=== PATIENT | female | born 1995 | race Caucasian/White ===

== ENCOUNTER 2017-03-20 14:46 | Emergency (ER) | payer OTHER ==
[~2017-03-20] VITALS: Ht 157.5 cm; Wt 54.5 kg
[2017-03-20 14:47] VITALS: BP 149/102; PULSE 111; RESP 20; TEMP 99.1; O2SAT 98
--- NOTE | 2017-03-20 14:57 | PD ---
Physical Exam Date Seen by Provider: Mar 20, 2017 Time Seen by Provider: 14:56 Narrative 22 yo female here for abdominal pain. LUQ. Going on since today. Cramping pain. No injuries. Getting worst. Going to the back and epigastric area. Some SOB with pain. Chest tightness. No N/V/D. Vitals stable in triage. Awaiting bed placement. Data Data Last Documented VS Vital Signs Date Time Temp Pulse Resp B/P (MAP) Pulse Ox O2 Delivery O2 Flow Rate FiO2 03/20/17 14:47 99.1 111 20 149/102 (118) 98 Room Air [facility] Medical Record Reviewed: Yes Supervised Visit with ARVIN: No Garry Cleary Mar 20, 2017 14:57
[2017-03-20 15:18] LABS: AUTOMATED NEUTROPHIL # 6.2 TH/MM3 (1.8-7.7); BASOPHIL % 0.3 % (0.0-2.0); EOSINOPHIL % 0.1 % (0.0-4.0); HEMATOCRIT 42.5 % (35.0-46.0); HEMO FLAGS DIFF FINAL; LYMPH % 15.4 % (9.0-44.0); LYMPHOCYTE # 1.2 TH/MM3 (1.0-4.8); MEAN CELL VOLUME 93.2 FL (80.0-100.0); MEAN CORPUSCULAR HEMOGLOBIN 31.6 PG (27.0-34.0); MEAN CORPUSCULAR HGB CONC 33.9 % (32.0-36.0); NEUT % 77.2 % (16.0-70.0); PLATELET COUNT 242 TH/MM3 (150-450); RED BLOOD COUNT 4.57 MIL/MM3 (4.00-5.30); RED CELL DISTRIBUTION WIDTH 12.7 % (11.6-17.2); WHITE BLOOD COUNT 8.1 TH/MM3 (4.0-11.0)
[2017-03-20 15:27] LABS: BLOOD, URINE NEG (NEG); COMMENT (UR) CULT NOT INDICATED; CULTURE IF INDICATED CULT NOT INDICATED; GLUCOSE,URINE NEG (NEG); KETONE, URINE TRACE mg/dL (NEG); NITRITE,URINE NEG (NEG); PH, URINE 7.5 (5.0-8.5); SQUAMOUS EPITHELIAL CELL URINE 9 /hpf (0-5); URINE COLOR YELLOW (YELLW/STRAW)
[2017-03-20 15:41] LABS: ALKALINE PHOSPHATASE 50 U/L (45-117); TOTAL BILIRUBIN ADULT 0.6 MG/DL (0.2-1.0)
[2017-03-20 15:43] LABS: ALT (GPT) 27 U/L (10-53); ANION GAP 7 MEQ/L (5-15); AST (GOT) 38 U/L (15-37); BICARBONATE 23.6 MEQ/L (21.0-32.0); BLOOD UREA NITROGEN 13 MG/DL (7-18); CHLORIDE 107 MEQ/L (98-107); GLOMERULAR FILTRATION RATE 79 ML/MIN (>89); POTASSIUM 4.6 MEQ/L (3.5-5.1); SODIUM (NA) 138 MEQ/L (136-145)
--- NOTE | 2017-03-20 15:43 | RADRPT ---
EXAM DATE/TIME: 03/20/2017 15:22 [facility] COMPARISON: No previous studies available for comparison. INDICATIONS : Left side chest pain. MEDICAL HISTORY : anxiety SURGICAL HISTORY : None. ENCOUNTER: Initial ACUITY: 1 day PAIN SCORE: 8/10 LOCATION: Left chest FINDINGS: PA and lateral views of the chest demonstrate the lungs to be symmetrically aerated without evidence of mass, infiltrate or effusion. The cardiomediastinal contours are unremarkable. Osseous structure s are intact. CONCLUSION: 1. No acute cardiopulmonary disease. Alexi Wolf MD on March 20, 2017 at 15:41 Board Certified Radiologist. This report was verified electronically.
[2017-03-20] MEDS ORDERED: MORPHINE SULFATE 4 MG/ML INJ IV PUSH ONE (16:15)
[2017-03-20] MEDS ORDERED: ONDANSETRON HCL 4 MG/2 ML VIAL IV PUSH ONE (16:15)
--- NOTE | 2017-03-20 16:44 | PD ---
HPI Chief Complaint: Pain: Acute or Chronic Time Seen by Provider: 16:01 Travel History International Travel<30 days: No Contact w/Intl Traveler<30days: No Traveled to known affect area: No History of Present Illness HPI To 22 year-old woman presents emergency Department with left-sided abdominal pain that started this morning. States she's woke up with mild pain that became progressively more severe. She describes pain mostly in the left lower abdomen goes up to the left rib cage underneath the diaphragm and into the chest a little bit. Pain is worse with deep breathing or pressure in the abdomen. She's had some nausea and vomiting with it as well. Bowel movements been normal. No fevers or chills. Last menstrual period was a couple weeks ago. She sexually active but denies any vaginal discharge vaginal bleeding or urinary symptoms. No history of previous similar problems. History Past Medical History Medical History: Denies Significant Hx Social History Tobacco Use: No Allergies-Medications (Allergen,Severity, Reaction): Coded Allergies: No Known Allergies (Verified Allergy, Unknown, 03/20/17) Review of Systems Except as stated in HPI: all other systems reviewed are Neg Physical Exam Narrative GENERAL: Well-appearing 22 year-old woman, no acute distress appears uncomfortable. She is tearful and crying and clutching her left side of her abdomen. SKIN: Focused skin assessment warm/dry. HEAD: Atraumatic. Normocephalic. CARDIOVASCULAR: Regular rate and rhythm. No murmur appreciated. RESPIRATORY: No accessory muscle use. Clear to auscultation. Breath sounds equal bilaterally. GASTROINTESTINAL: Abdomen is flat and soft. Moderate left-sided tenderness. Some voluntary guarding. MUSCULOSKELETAL: No obvious deformities. No edema. NEUROLOGICAL: Awake and alert. No obvious cranial nerve deficits. Motor grossly within normal limits. Normal speech. PSYCHIATRIC: Appropriate mood and affect; insight and judgment normal. PELVIC: Normal external female genitalia. Scant vaginal discharge in the vaginal vault. Mild cervical motion tenderness. No palpable uterine enlargement or adnexal masses. Data Data Last Documented VS Vital Signs Date Time Temp Pulse Resp B/P (MAP) Pulse Ox O2 Delivery O2 Flow Rate FiO2 03/20/17 16:55 16 03/20/17 14:47 99.1 111 149/102 (118) 98 Room Air Orders Orders Complete Blood Count With Diff (03/20/17 14:57) Comprehensive Metabolic Panel (03/20/17 14:57) Lipase (03/20/17 14:57) Urinalysis - C+S If Indicated (03/20/17 14:57) Ed Urine Pregnancytest Poc (03/20/17 14:57) Chest, Pa & Lat (03/20/17 14:57) Us Pelvis Comp W Dop Transvag (03/20/17 ) Ondansetron Inj (Zofran Inj) (03/20/17 16:15) Beta Hcg (Quant/Titer) (03/20/17 16:04) Gc And Chlamydia Pcr (03/20/17 16:04) Wet Prep Profile (03/20/17 16:04) Morphine Inj (Morphine Inj) (03/20/17 16:15) Labs Laboratory Tests Test 03/20/17 15:06 White Blood Count 8.1 TH/MM3 Red Blood Count 4.57 MIL/MM3 Hemoglobin 14.4 GM/DL Hematocrit 42.5 % Mean Corpuscular Volume 93.2 FL Mean Corpuscular Hemoglobin 31.6 PG Mean Corpuscular Hemoglobin Concent 33.9 % Red Cell Distribution Width 12.7 % Platelet Count 242 TH/MM3 Mean Platelet Volume 8.6 FL Neutrophils (%) (Auto) 77.2 % Lymphocytes (%) (Auto) 15.4 % Monocytes (%) (Auto) 7.0 % Eosinophils (%) (Auto) 0.1 % Basophils (%) (Auto) 0.3 % Neutrophils # (Auto) 6.2 TH/MM3 Lymphocytes # (Auto) 1.2 TH/MM3 Monocytes # (Auto) 0.6 TH/MM3 Eosinophils # (Auto) 0.0 TH/MM3 Basophils # (Auto) 0.0 TH/MM3 CBC Comment DIFF FINAL Differential Comment Urine Color YELLOW Urine Turbidity HAZY Urine pH 7.5 Urine Specific [place] 1.026 Urine Protein 30 mg/dL Urine Glucose (UA) NEG mg/dL Urine Ketones TRACE mg/dL Urine Occult Blood NEG Urine Nitrite NEG Urine Bilirubin NEG Urine Urobilinogen 2.0 MG/DL Urine Leukocyte Esterase NEG Urine RBC 1 /hpf Urine WBC 2 /hpf Urine Squamous Epithelial Cells 9 /hpf Microscopic Urinalysis Comment CULT NOT INDICATED Blood Urea Nitrogen 13 MG/DL Creatinine 0.90 MG/DL Random Glucose 93 MG/DL Total Protein 8.4 GM/DL Albumin 4.6 GM/DL Calcium Level 9.1 MG/DL Alkaline Phosphatase 50 U/L Aspartate Amino Transf (AST/SGOT) 38 U/L Alanine Aminotransferase (ALT/SGPT) 27 U/L Total Bilirubin 0.6 MG/DL Sodium Level 138 MEQ/L Potassium Level 4.6 MEQ/L Chloride Level 107 MEQ/L Carbon Dioxide Level 23.6 MEQ/L Anion Gap 7 MEQ/L Estimat Glomerular Filtration Rate 79 ML/MIN Lipase 97 U/L MDM Medical Decision Making Medical Screen Exam Complete: Yes Emergency Medical Condition: Yes Differential Diagnosis Ruptured ovarian cyst, ovarian torsion, gastritis, PID, , other Narrative Course Medical decision making Is a well 22 year-old woman presents with severe low left-sided abdominal pain. I suspect this is an ovarian cyst that ruptured is giving her pain and tenderness. Ovarian torsion seems less likely but difficult to exclude. We'll get ultrasound. We'll make sure that she gets a test, we'll do pelvic exam. Denies any vaginal discharge or other symptoms to suggest PID. Diagnosis Primary Impression: Pelvic pain in female Additional Instructions: Take Naprosyn as needed for pain. Use Lortab sparingly if needed for severe pain. Follow-up with your upper cutter machine if you're not completely well in the next 2-4 days. Med/Other Pt SpecificInfo: Prescription(s) given Scripts Hydrocodone-Acetaminophen (Lortab) 5-325 Mg Tab 1 TAB PO Q6H Y for PAIN, #6 TAB 0 Refills Prov: Olvin Lin MD 03/20/17 Naproxen (Naproxen) 500 Mg Tab 500 MG PO BID for 5 Days, #10 TAB 0 Refills Prov: Olvin Lin MD 03/20/17 Disposition: 01 DISCHARGE HOME Condition: Stable Olvin Lin MD Mar 20, 2017 16:44
[2017-03-20 16:55] VITALS: RESP 16
--- NOTE | 2017-03-20 17:08 | RADRPT ---
EXAM DATE/TIME: 03/20/2017 16:21 [facility] COMPARISON: No previous studies available for comparison. INDICATIONS : Pelvic pain. MEDICAL HISTORY : None. SURGICAL HISTORY : None. ENCOUNTER: Initial ACUITY: 1 day PAIN SCORE: 10/10 LOCATION: Bilateral pelvis MEASUREMENTS: UTERUS: 6.7 x 4.3 x 2.9 cm ENDOMETRIAL STRIPE: 8 mm RIGHT OVARY: 3.2 x 2.2 x 1.9 cm LEFT OVARY: 3.4 x 2.0 x 1.8 cm FINDINGS: UTERUS: The myometrium has homogeneous echotexture without mass. RIGHT OVARY: Ovary contains no mass or significant cystic lesion. LEFT OVARY: Ovary contains no mass or significant cystic lesion. MISCELLANEOUS: No free fluid. CONCLUSION: Normal study Raul Gordon MD on March 20, 2017 at 17:06 Board Certified Radiologist. This report was verified electronically.
[2017-03-20] MEDS ORDERED: NAPR500T PO (17:11)
[2017-03-20] MEDS ORDERED: HYDR-3533 PO (17:11)
[2017-03-20] MEDS ORDERED: KETOROLAC TROMETHAMINE 30 MG/ML (IVP) VIAL IVP ONE (17:15)
[2017-03-20 19:47] LABS: CHLAMYDIA PCR NOT DETECTED (NOT DETECT); NEISSERIA PCR NOT DETECTED (NOT DETECT)
[2017-03-21 02:10] LABS: BETA HCG QUANT LESS THAN 1 MIU/ML (0-5)
== END 2017-03-20 18:12 | disposition home or self-care (01) ==
LOC: NEPD 14:46
DX: R10.2 Pelvic and perineal pain (principal)
CPT/HCPCS: 71020; 76830; 76856; 80053; 81001; 83690; 84702; 84703; 85025; 87210; 87491; 87591; 93975; 96374; 96375; 99285; J1885; J2270; J2405